=== PATIENT | female | born 1960 | race Caucasian/White ===

== ENCOUNTER 2017-10-04 04:08 | Emergency (ER) | payer SELFPAY ==
[~2017-10-04] VITALS: Ht 157.4 cm; Wt 52.2 kg
[~2017-10-04 04:08] MED LIST: CYCLOBENZAPRINE10 MG PO; HYDROCODONE BIT1 T11 PO; IBU800 MG PO; MEDROL DOSEPAK4 MG PO
[2017-10-04 04:33] LABS: BILIRUBIN 1+ (NEGATIVE); BLOOD 3+ (NEGATIVE); CLARITY CLOUDY (CLEAR); GLUCOSE NEGATIVE (NEGATIVE); KETONE TRACE (NEGATIVE); LEUKO ESTERASE NEGATIVE (NEGATIVE); NITRITE POSITIVE (NEGATIVE); SPECIFIC GRAVITY 1.025 (1.005-1.030)
[2017-10-04 04:35] LABS: COLOR YELLOW (YELLOW)
[2017-10-04 04:44] LABS: BACTERIA 4+; EPITHELIAL CELLS 20-25; RBC TNTC rbc/hpf (0-2)
[2017-10-04 05:29] LABS: BASO # 0.1 10*3/uL (0.0-0.1); BASO % 0.5 % (0.0-1.0); EOS # 0.2 10*3/uL (0.0-0.4); EOS % 1.7 % (1.0-4.0); HEMATOCRIT 40.1 % (37.0-47.0); HEMOGLOBIN 13.5 g/dl (12.0-16.0); LYMPH # 1.5 10*3/uL (1.3-4.4); LYMPH % 15.9 % (27.0-41.0); MEAN CELL VOLUME 96.4 fl (81.0-99.0); MEAN CORPUSCULAR HGB 32.5 pg (27.0-31.0); MEAN CORPUSCULAR HGB CONC 33.7 g/dl (33.0-37.0); MEAN PLATELET VOLUME 10.4 fl (9.6-12.3); MONO # 0.6 10*3/uL (0.1-1.0); MONO % 6.5 % (3.0-9.0); NEUT # 7.1 10*3/uL (2.3-7.9); NEUT % 75.2 % (47.0-73.0); PLATELET COUNT AUTOMATED 301 10*3/uL (130-400); RED BLOOD COUNT 4.16 10*6/uL (4.10-5.10); RED CELL DISTRI WIDTH 13.7 % (0-14.5); WHITE BLOOD COUNT 9.5 10*3/uL (4.8-10.8)
[2017-10-04 05:47] LABS: ALBUMIN 3.7 gm/dl (3.1-4.5); ALKALINE PHOSPHATASE 57 U/L (45-117); BUN 10 mg/dl (7-24); CHLORIDE 110 mmol/L (98-107); CREATININE 0.86 mg/dL (0.55-1.02); LIPASE 98 U/L (73-393); SGOT/AST 25 IU/L (3-35); SGPT/ALT 25 U/L (12-78); SODIUM 143 mmol/L (136-145); TOTAL PROTEIN 7.2 gm/dL (6.4-8.2)
[2017-10-04] MEDS ORDERED: NORCO 5-325 TA1 EACH PO (06:40)
== END 2017-10-04 06:56 | disposition home or self-care (01) ==
LOC: ED 04:08
PROVIDERS: Emergency Medicine Emergency Medical Services
DX: N83.9 Noninflammatory disorder of ovary, fallopian tube and broad ligament, unspecified (principal); R10.2 Pelvic and perineal pain

== ENCOUNTER 2018-04-15 04:21 | Emergency (ER) | payer OTHER ==
[~2018-04-15] VITALS: Ht 154.9 cm; Wt 56.7 kg
[~2018-04-15 04:21] MED LIST changes: +NORCO 5-325 TA1 EACH PO
[2018-04-15 05:15] LABS: BASO % 0.5 % (0.0-1.0); EOS # 0.2 10*3/uL (0.0-0.4); HEMATOCRIT 39.3 % (37.0-47.0); HEMOGLOBIN 13.3 g/dl (12.0-16.0); LYMPH # 1.7 10*3/uL (1.3-4.4); LYMPH % 19.6 % (27.0-41.0); MEAN CELL VOLUME 96.1 fl (81.0-99.0); MEAN CORPUSCULAR HGB 32.5 pg (27.0-31.0); MEAN CORPUSCULAR HGB CONC 33.8 g/dl (33.0-37.0); MEAN PLATELET VOLUME 10.1 fl (9.6-12.3); MONO # 0.9 10*3/uL (0.1-1.0); MONO % 10.6 % (3.0-9.0); NEUT # 5.7 10*3/uL (2.3-7.9); NEUT % 67.2 % (47.0-73.0); PLATELET COUNT AUTOMATED 317 10*3/uL (130-400); RED BLOOD COUNT 4.09 10*6/uL (4.10-5.10); WHITE BLOOD COUNT 8.4 10*3/uL (4.8-10.8)
[2018-04-15 05:30] LABS: ALBUMIN 3.7 gm/dl (3.1-4.5); ALKALINE PHOSPHATASE 59 U/L (45-117); BUN 10 mg/dl (7-24); CHLORIDE 107 mmol/L (98-107); CREATININE 0.98 mg/dL (0.55-1.02); POTASSIUM 4.5 mmol/L (3.5-5.1); SGOT/AST 16 IU/L (3-35); SGPT/ALT 15 U/L (12-78); SODIUM 141 mmol/L (136-145)
[2018-04-15 05:57] LABS: BILIRUBIN NEGATIVE (NEGATIVE); BLOOD 2+ (NEGATIVE); CLARITY CLOUDY (CLEAR); COLOR YELLOW (YELLOW); GLUCOSE NEGATIVE (NEGATIVE); KETONE NEGATIVE (NEGATIVE); LEUKO ESTERASE NEGATIVE (NEGATIVE); NITRITE POSITIVE (NEGATIVE); SPECIFIC GRAVITY 1.015 (1.005-1.030); UROBILINOGEN 0.2 E.U./dl (0.2-1.0)
[2018-04-15 06:12] LABS: BACTERIA 2+; RBC 41-50 rbc/hpf (0-2)
== END 2018-04-15 09:00 | disposition short-term general hospital (02) ==
LOC: ED 04:21
PROVIDERS: Emergency Medicine
DX: N13.2 Hydronephrosis with renal and ureteral calculous obstruction (principal)

== ENCOUNTER → 2018-04-23 | Outpatient (CLI) | payer OTHER | END | disposition home or self-care (01) | LOC: RAD 14:05 | DX: N20.0 Calculus of kidney (principal) ==

== ENCOUNTER → 2018-05-08 | Outpatient (CLI) | payer OTHER ==
[2018-05-08 15:02] LABS: BASO # 0.1 10*3/uL (0.0-0.1); BASO % 0.9 % (0.0-1.0); EOS # 0.2 10*3/uL (0.0-0.4); EOS % 2.8 % (1.0-4.0); HEMOGLOBIN 12.2 g/dl (12.0-16.0); LYMPH # 1.4 10*3/uL (1.3-4.4); LYMPH % 24.1 % (27.0-41.0); MEAN CORPUSCULAR HGB 32.9 pg (27.0-31.0); MEAN CORPUSCULAR HGB CONC 33.9 g/dl (33.0-37.0); MEAN PLATELET VOLUME 9.5 fl (9.6-12.3); MONO # 0.6 10*3/uL (0.1-1.0); NEUT # 3.6 10*3/uL (2.3-7.9); PLATELET COUNT AUTOMATED 395 10*3/uL (130-400); RED BLOOD COUNT 3.71 10*6/uL (4.10-5.10); RED CELL DISTRI WIDTH 13.2 % (0-14.5); WHITE BLOOD COUNT 5.7 10*3/uL (4.8-10.8)
[2018-05-08 15:21] LABS: ALBUMIN 3.7 gm/dl (3.1-4.5); ALKALINE PHOSPHATASE 72 U/L (45-117); BUN 8 mg/dl (7-24); CHLORIDE 107 mmol/L (98-107); CREATININE 0.69 mg/dL (0.55-1.02); POTASSIUM 4.1 mmol/L (3.5-5.1); SGOT/AST 13 IU/L (3-35); SGPT/ALT 17 U/L (12-78); SODIUM 140 mmol/L (136-145); TOTAL PROTEIN 7.5 gm/dL (6.4-8.2)
[2018-05-08 15:26] LABS: T3 UPTAKE 34 % (31-39)
[2018-05-08 16:53] LABS: BILIRUBIN NEGATIVE (NEGATIVE); BLOOD 1+ (NEGATIVE); CLARITY CLEAR (CLEAR); COLOR YELLOW (YELLOW); GLUCOSE NEGATIVE (NEGATIVE); KETONE NEGATIVE (NEGATIVE); LEUKO ESTERASE NEGATIVE (NEGATIVE); NITRITE NEGATIVE (NEGATIVE); SPECIFIC GRAVITY <= 1.005 (1.005-1.030); UROBILINOGEN 0.2 E.U./dl (0.2-1.0)
[2018-05-08 17:02] LABS: BACTERIA TRACE; WBC 0-2 wbc/hpf (0-5)
== END | disposition home or self-care (01) ==
LOC: LAB 14:41 → US 16:00
PROVIDERS: Urology
DX: N13.30 Unspecified hydronephrosis (principal)

== ENCOUNTER → 2019-01-28 | Outpatient (CLI) | payer OTHER ==
[~2019-01-28] MED LIST changes: +ZOFRAN4 MG PO
== END | disposition home or self-care (01) ==
LOC: ORTHO 00:07
DX: S52.572D Other intraarticular fracture of lower end of left radius, subsequent encounter for closed fracture with routine healing (principal); X58.XXXD Exposure to other specified factors, subsequent encounter

== ENCOUNTER → 2019-02-21 | Outpatient (CLI) | payer OTHER | END | disposition home or self-care (01) | LOC: ORTHO 00:15 | DX: S52.572D Other intraarticular fracture of lower end of left radius, subsequent encounter for closed fracture with routine healing (principal); X58.XXXD Exposure to other specified factors, subsequent encounter ==

== ENCOUNTER → 2019-04-15 | Outpatient (CLI) | payer OTHER | END | disposition home or self-care (01) | LOC: ORTHO 01:30 | DX: S52.572D Other intraarticular fracture of lower end of left radius, subsequent encounter for closed fracture with routine healing (principal); X58.XXXD Exposure to other specified factors, subsequent encounter ==

== ENCOUNTER 2020-11-26 18:35 | Emergency (ER) | payer OTHER ==
[~2020-11-26] VITALS: Ht 154.9 cm; Wt 54.4 kg
[2020-11-26] MEDS ORDERED: ROBAXIN-750750 MG PO (19:03)
[2020-11-26] MEDS ORDERED: NAPROXEN250 MG PO (19:03)
== END 2020-11-26 19:19 | disposition home or self-care (01) ==
LOC: ED 18:35
DX: S16.1XXA Strain of muscle, fascia and tendon at neck level, initial encounter (principal); Z79.899 Other long term (current) drug therapy; Z90.711 Acquired absence of uterus with remaining cervical stump; Z98.890 Other specified postprocedural states; X58.XXXA Exposure to other specified factors, initial encounter; Y93.89 Activity, other specified; Y92.89 Other specified places as the place of occurrence of the external cause; Y99.8 Other external cause status

== ENCOUNTER → 2021-01-06 | Outpatient (CLI) | payer OTHER ==
[~2021-01-06] MED LIST changes: +NAPROXEN250 MG PO; +ROBAXIN-750750 MG PO
[2021-01-06 09:17] LABS: BASO # 0.1 10*3/uL (0.0-0.1); BASO % 0.7 % (0.0-1.0); EOS # 0.1 10*3/uL (0.0-0.4); EOS % 0.8 % (1.0-4.0); HEMATOCRIT 40.8 % (37.0-47.0); LYMPH % 13.1 % (27.0-41.0); MEAN CELL VOLUME 95.8 fl (81.0-99.0); MEAN CORPUSCULAR HGB 31.9 pg (27.0-31.0); MEAN CORPUSCULAR HGB CONC 33.3 g/dl (33.0-37.0); MONO # 0.7 10*3/uL (0.1-1.0); MONO % 9.8 % (3.0-9.0); NEUT # 5.7 10*3/uL (2.3-7.9); NEUT % 75.3 % (47.0-73.0); PLATELET COUNT AUTOMATED 311 10*3/uL (130-400); RED BLOOD COUNT 4.26 10*6/uL (4.10-5.10); RED CELL DISTRI WIDTH 13.6 % (0-14.5); RETICULOCYTE % 0.92 % (0.50-2.50); WHITE BLOOD COUNT 7.6 10*3/uL (4.8-10.8)
[2021-01-06 09:21] LABS: BILIRUBIN Negative (Negative); BLOOD Negative (Negative); CLARITY Clear (Clear); COLOR Yellow (Yellow); GLUCOSE Negative (Negative); KETONE Negative (Negative); LEUKO ESTERASE Negative (Negative); NITRITE Negative (Negative); PH 5.5 (4.5-8.0); UROBILINOGEN 0.2 E.U./dl (0.0-1.0)
[2021-01-06 09:31] LABS: RBC 0-2 rbc/hpf (0-2)
[2021-01-06 09:32] LABS: BACTERIA TRACE; EPITHELIAL CELLS 0-2; WBC 0-2 wbc/hpf (0-5)
[2021-01-06 09:37] LABS: ALBUMIN 3.4 gm/dl (3.1-4.5); BUN 8 mg/dl (7-24); CHLORIDE 108 mmol/L (98-107); CHOLESTEROL 230 mg/dL (<200); GAMMA GLUTAMYL TRANSPEPTIDASE 15 U/L (5-55); SODIUM 138 mmol/L (136-145); TRIGLYCERIDES 66 mg/dl (<150)
[2021-01-06 09:47] LABS: ALKALINE PHOSPHATASE 93 U/L (45-117); CREATININE 0.81 mg/dL (0.55-1.02); IRON 43 ug/dL (50-170); LDL CHOLESTEROL 121 mg/dL (9-159); SGOT/AST 13 IU/L (3-35); SGPT/ALT 16 U/L (12-78); THYROID STIM HORMONE (HS) 0.996 uIU/ml (0.358-4.75); TOTAL IRON BINDING CAPACITY 309 ug/dl (250-450); TOTAL PROTEIN 7.9 gm/dL (6.4-8.2); URIC ACID 2.6 mg/dL (2.6-6.0)
[2021-01-06 10:20] LABS: FERRITIN 46.8 ng/mL (10.0-291.0); VITAMIN D, 25-HYDROXY 25.7 ng/mL (30-100)
[2021-01-07 05:06] LABS: RHEUMATOID ARTHRITIS FACTOR 10.6 IU/mL (0.0-13.9)
[2021-01-07 13:07] LABS: ANTI-DSDNA ANTIBODIES <1 IU/mL (0-9)
== END | disposition home or self-care (01) ==
LOC: LAB 08:54
PROVIDERS: ATTEND Family Medicine
DX: M41.84 Other forms of scoliosis, thoracic region (principal); R53.83 Other fatigue; R79.89 Other specified abnormal findings of blood chemistry; E78.5 Hyperlipidemia, unspecified; R74.8 Abnormal levels of other serum enzymes; M25.50 Pain in unspecified joint; E55.9 Vitamin D deficiency, unspecified

== ENCOUNTER → 2021-02-16 | Outpatient (CLI) | payer OTHER | END | disposition home or self-care (01) | LOC: MRI 02-11 10:00 | PROVIDERS: ATTEND Family Medicine | DX: M50.30 Other cervical disc degeneration, unspecified cervical region (principal); M48.02 Spinal stenosis, cervical region; M41.84 Other forms of scoliosis, thoracic region; M25.78 Osteophyte, vertebrae; M89.38 Hypertrophy of bone, other site; S13.4XXD Sprain of ligaments of cervical spine, subsequent encounter; S23.3XXD Sprain of ligaments of thoracic spine, subsequent encounter; X58.XXXD Exposure to other specified factors, subsequent encounter ==

== ENCOUNTER → 2021-03-29 | Outpatient (CLI) | payer OTHER | END | disposition home or self-care (01) | LOC: RAD 13:22 | PROVIDERS: ATTEND Family Medicine | DX: M19.90 Unspecified osteoarthritis, unspecified site (principal) ==

== ENCOUNTER → 2022-09-13 | Outpatient (CLI) | payer MEDICAID ==
[2022-09-13 14:26] LABS: BASO # 0.1 10*3/uL (0.0-0.1); BASO % 0.9 % (0.0-1.0); BILIRUBIN Negative (Negative); BLOOD 2+ (Negative); CLARITY Clear (Clear); COLOR Yellow (Yellow); EOS % 0.6 % (1.0-4.0); GLUCOSE Negative (Negative); HEMATOCRIT 43.9 % (37.0-47.0); KETONE Trace (Negative); LEUKO ESTERASE 1+ (Negative); LYMPH # 1.3 10*3/uL (1.3-4.4); LYMPH % 19.5 % (27.0-41.0); MEAN CELL VOLUME 95.2 fl (81.0-99.0); MEAN CORPUSCULAR HGB 32.1 pg (27.0-31.0); MEAN CORPUSCULAR HGB CONC 33.7 g/dl (33.0-37.0); MEAN PLATELET VOLUME 10.7 fl (9.6-12.3); MONO # 0.5 10*3/uL (0.1-1.0); MONO % 7.2 % (3.0-9.0); NEUT # 4.9 10*3/uL (2.3-7.9); NEUT % 71.5 % (47.0-73.0); NITRITE Negative (Negative); PLATELET COUNT AUTOMATED 310 10*3/uL (130-400); RED BLOOD COUNT 4.61 10*6/uL (4.10-5.10); RED CELL DISTRI WIDTH 13.4 % (0-14.5); RETICULOCYTE % 0.89 % (0.50-2.50); UROBILINOGEN 0.2 E.U./dl (0.0-1.0); WHITE BLOOD COUNT 6.8 10*3/uL (4.8-10.8)
[2022-09-13 14:48] LABS: ALKALINE PHOSPHATASE 87 U/L (46-116); BACTERIA 1+; BUN 10 mg/dl (9-23); CHLORIDE 104 mmol/L (98-107); CHOLESTEROL 233 mg/dL (<200); GAMMA GLUTAMYL TRANSPEPTIDASE 13 U/L (0-73); LDL CHOLESTEROL 130 mg/dL (9-159); MUCOUS 1+; POTASSIUM 3.7 mmol/L (3.4-5.1); RBC 16-20 rbc/hpf (0-2); SGPT/ALT 16 U/L (10-49); THYROID STIM HORMONE (HS) 2.623 uIU/ml (0.550-4.780); THYROXINE (T4) TOTAL 7.2 ug/dl (4.5-10.9); TOTAL PROTEIN 7.7 gm/dL (6.0-8.0); TRIGLYCERIDES 65 mg/dl (<150); URIC ACID 3.8 mg/dL (3.1-7.8)
[2022-09-13 15:34] LABS: VITAMIN D, 25-HYDROXY 39.3 ng/mL (30-100)
[2022-09-14 13:06] LABS: ANTI-DSDNA ANTIBODIES 1 IU/mL (0-9)
== END | disposition home or self-care (01) ==
LOC: LAB 13:42
PROVIDERS: ATTEND Family Medicine
DX: E55.9 Vitamin D deficiency, unspecified (principal); E78.5 Hyperlipidemia, unspecified; R06.02 Shortness of breath; R53.83 Other fatigue; R79.89 Other specified abnormal findings of blood chemistry

== ENCOUNTER → 2022-10-12 | Outpatient (CLI) | payer MEDICAID | END | disposition home or self-care (01) | LOC: US 00:26 | PROVIDERS: ATTEND Family Medicine | DX: R13.10 Dysphagia, unspecified (principal); E01.0 Iodine-deficiency related diffuse (endemic) goiter ==

== ENCOUNTER → 2022-10-19 | Outpatient (CLI) | payer MEDICAID | END | disposition home or self-care (01) | LOC: RAD 00:49 | PROVIDERS: ATTEND Specialist | DX: K21.00 Gastro-esophageal reflux disease with esophagitis, without bleeding (principal) ==

== ENCOUNTER → 2024-12-11 | Outpatient (CLI) | payer OTHER ==
[2024-12-11 10:51] LABS: BILIRUBIN Negative (Negative); BLOOD Negative (Negative); CLARITY Clear (Clear); COLOR Yellow (Yellow); GLUCOSE Negative (Negative); KETONE Trace (Negative); LEUKO ESTERASE Negative (Negative); NITRITE Negative (Negative); PH 5.5 (4.5-8.0); SPECIFIC GRAVITY 1.025 (1.001-1.030); UROBILINOGEN 0.2 E.U./dl (0.0-1.0)
== END | disposition home or self-care (01) ==
LOC: LAB 10:15
PROVIDERS: ATTEND Family Medicine
DX: R79.89 Other specified abnormal findings of blood chemistry (principal); R53.83 Other fatigue; E78.5 Hyperlipidemia, unspecified